=== PATIENT | male | born 1970 | race Caucasian/White ===

== ENCOUNTER 2018-12-22 13:35 | Inpatient (IN) | payer MEDICAID | END 2018-12-24 12:00 | disposition home or self-care (01) | LOC: ED 13:35 → MU 15:40 → ED 13:35 → MU 15:40 → ED 13:35 → MU 12-24 12:00 → ED 13:35 → MU 12-24 12:00 → ED 13:35 → MU 15:40 | DX: A41.9 Sepsis, unspecified organism (principal); E44.1 Mild protein-calorie malnutrition; L03.114 Cellulitis of left upper limb; E11.9 Type 2 diabetes mellitus without complications; E78.5 Hyperlipidemia, unspecified; F11.10 Opioid abuse, uncomplicated; F12.10 Cannabis abuse, uncomplicated; F15.10 Other stimulant abuse, uncomplicated; Z68.30 Body mass index [BMI] 30.0-30.9, adult; F17.210 Nicotine dependence, cigarettes, uncomplicated; Z79.84 Long term (current) use of oral hypoglycemic drugs ==

== ENCOUNTER 2019-05-10 01:13 | Emergency (ER) | payer MEDICAID ==
[~2019-05-10] VITALS: Ht 177.8 cm; Wt 103.4 kg
[~2019-05-10 01:13] MED LIST: BACTRIM1 TAB PO; KEFLEX500 M1 PO; METFORMIN HYDR500 M1 PO
[2019-05-10 01:16] VITALS: Ht 177.8 cm; Wt 103.4 kg
[2019-05-10 03:11] VITALS: BP 155/88
[2019-05-10] MEDS ORDERED: ZOLOFT50 MG PO (23:29)
== END 2019-05-10 03:11 | disposition left against medical advice (07) ==
LOC: ED 01:13
DX: L08.9 Local infection of the skin and subcutaneous tissue, unspecified (principal); L53.9 Erythematous condition, unspecified; E11.9 Type 2 diabetes mellitus without complications
CPT/HCPCS: 90715

== ENCOUNTER 2019-05-10 21:50 | Inpatient (IN) | payer MEDICAID ==
[~2019-05-10] VITALS: Ht 177.8 cm; Wt 102.5 kg
[2019-05-10 21:54] VITALS: Ht 177.8 cm; Wt 102.5 kg
[2019-05-10] MEDS ORDERED: ZOLOFT50 MG PO (23:29)
[2019-05-10 23:40] LABS: BASOPHIL % 0.3 % (0-2); PLATELET COUNT 193 x10^3mcL (130-400); RED CELL DISTRIBUTION WIDTH 13.2 % (11.5-14.5)
[2019-05-10 23:48] LABS: CALCIUM 8.6 mg/dL (8.5-10.1); CARBON DIOXIDE 31.5 mmol/L (21-32); CHLORIDE SERUM 100 mmol/L (98-107); CREATININE SERUM 0.9 mg/dL (0.7-1.3); GFR1 > 60 mL/min; GLUCOSE SERUM 355 mg/dL (74-106); POTASSIUM SERUM 3.8 mmol/L (3.5-5.1); SODIUM SERUM 139 mmol/L (136-145)
[2019-05-10 23:54] LABS: ALKALINE PHOSPHATASE 81 U/L (46-116); ALT/SGPT 26 U/L (16-63); AST/SGOT 16 U/L (15-37); BILIRUBIN TOTAL 0.3 mg/dL (0.20-1.00); TOTAL PROTEIN, SERUM 7.5 g/dL (6.4-8.2)
[2019-05-10 23:56] LABS: ALBUMIN 2.8 g/dL (3.4-5.0)
[2019-05-11 02:55] VITALS: BP 139/89
[2019-05-11 03:01] LABS: MAGNESIUM 1.8 mg/dL (1.8-2.4); PHOSPHOROUS 4.2 mg/dL (2.5-4.9)
[2019-05-11 03:02] LABS: CHOLESTEROL/HDL RATIO 4.7
[2019-05-11 03:11] LABS: FREE T4 1.71 ng/dL (0.76-1.46); FREE THYROXINE INDEX 3.9 ug/dL (1.4-4.5); T4(THYROXINE) 11.2 ug/dL (4.7-13.3)
[2019-05-11 05:42] VITALS: BP 153/95
[2019-05-11 05:53] LABS: microscopic required? NO
[2019-05-11 05:56] LABS: UA SPECIFIC GRAVITY >=1.030 (1.005-1.035); urine erythrocyte NEGATIVE (NEGATIVE)
[2019-05-11 06:11] LABS: AMPHETAMINE QUAL UR POSITIVE (See below)
[2019-05-11 06:42] LABS: CALCIUM 8.4 mg/dL (8.5-10.1); CARBON DIOXIDE 25.8 mmol/L (21-32); CHLORIDE SERUM 101 mmol/L (98-107); GFR1 > 60 mL/min; GLUCOSE SERUM 330 mg/dL (74-106); POTASSIUM SERUM 3.6 mmol/L (3.5-5.1); SODIUM SERUM 137 mmol/L (136-145)
[2019-05-11 06:54] LABS: BASOPHIL % 0.3 % (0-2); PLATELET COUNT 167 x10^3mcL (130-400); RED CELL DISTRIBUTION WIDTH 13.4 % (11.5-14.5)
[2019-05-11 09:23] VITALS: BP 161/103
[2019-05-11 18:56] VITALS: BP 141/74
[2019-05-11 20:53] VITALS: BP 144/81
[2019-05-11 23:16] LABS: T3 TOTAL 1.64 ng/mL
[2019-05-12 05:24] VITALS: BP 169/96
[2019-05-12 08:51] VITALS: BP 104/63
[2019-05-12 17:31] VITALS: BP 101/51
[2019-05-12 20:37] VITALS: BP 136/92
[2019-05-13 04:58] VITALS: BP 126/83
[2019-05-13 08:11] LABS: CALCIUM 9.1 mg/dL (8.5-10.1); CARBON DIOXIDE 22.6 mmol/L (21-32); CHLORIDE SERUM 97 mmol/L (98-107); CREATININE SERUM 0.7 mg/dL (0.7-1.3); GFR1 > 60 mL/min; GLUCOSE SERUM 163 mg/dL (74-106); POTASSIUM SERUM 5.4 mmol/L (3.5-5.1); SODIUM SERUM 129 mmol/L (136-145)
[2019-05-13 08:23] VITALS: BP 132/85
[2019-05-13 13:48] LABS: BASOPHIL % 0.4 % (0-2); PLATELET COUNT 287 x10^3mcL (130-400); RED CELL DISTRIBUTION WIDTH 13.7 % (11.5-14.5)
[2019-05-13 13:59] LABS: CALCIUM 9.3 mg/dL (8.5-10.1); CARBON DIOXIDE 29.2 mmol/L (21-32); CHLORIDE SERUM 96 mmol/L (98-107); CREATININE SERUM 0.9 mg/dL (0.7-1.3); GFR1 > 60 mL/min; GLUCOSE SERUM 202 mg/dL (74-106); PHOSPHOROUS 3.5 mg/dL (2.5-4.9); POTASSIUM SERUM 3.4 mmol/L (3.5-5.1); SODIUM SERUM 133 mmol/L (136-145)
[2019-05-13 17:14] VITALS: BP 113/77
[2019-05-13 21:21] VITALS: BP 146/96
[2019-05-14 06:04] VITALS: BP 153/100
[2019-05-14 09:04] LABS: BASOPHIL % 0.2 % (0-2); PLATELET COUNT 300 x10^3mcL (130-400); RED CELL DISTRIBUTION WIDTH 13.8 % (11.5-14.5)
[2019-05-14 09:14] LABS: CALCIUM 9.6 mg/dL (8.5-10.1); CARBON DIOXIDE 22.6 mmol/L (21-32); CHLORIDE SERUM 99 mmol/L (98-107); CREATININE SERUM 0.9 mg/dL (0.7-1.3); GFR1 > 60 mL/min; GLUCOSE SERUM 281 mg/dL (74-106); POTASSIUM SERUM 3.7 mmol/L (3.5-5.1); SODIUM SERUM 133 mmol/L (136-145)
[2019-05-14 09:25] VITALS: BP 151/93
[2019-05-14 17:35] VITALS: BP 150/90
[2019-05-14 21:23] VITALS: BP 145/94
[2019-05-15 06:04] VITALS: BP 14/88; BP 141/88
[2019-05-15 06:49] LABS: BASOPHIL % 0.2 % (0-2); PLATELET COUNT 303 x10^3mcL (130-400); RED CELL DISTRIBUTION WIDTH 13.6 % (11.5-14.5)
[2019-05-15 07:03] LABS: CALCIUM 9.1 mg/dL (8.5-10.1); CARBON DIOXIDE 24.5 mmol/L (21-32); CHLORIDE SERUM 99 mmol/L (98-107); CREATININE SERUM 0.8 mg/dL (0.7-1.3); GFR1 > 60 mL/min; GLUCOSE SERUM 154 mg/dL (74-106); SODIUM SERUM 136 mmol/L (136-145)
[2019-05-15 09:18] VITALS: BP 152/92
[2019-05-15] MEDS ORDERED: BACTRIM DS1 TAB PO (09:44)
[2019-05-15] MEDS ORDERED: [UNRECOGNIZED DRUG - OTHER] MC (09:44)
[2019-05-15] MEDS ORDERED: METFORMIN HCL500 MG PO (09:47)
[2019-05-15 13:39] VITALS: BP 152/92
== END 2019-05-15 16:07 | disposition home health service (06) | DRG 364 ==
LOC: ED 21:50 → MU 05-11 01:19
PROVIDERS: Emergency Medicine; Internal Medicine; ADMIT General Practice
PROC: 0J9F0ZZ Drainage of Left Upper Arm Subcutaneous Tissue and Fascia, Open Approach (ICD-10-PCS; principal; 2019-05-11)
DX: L02.414 Cutaneous abscess of left upper limb (principal); E43 Unspecified severe protein-calorie malnutrition; E87.2 Acidosis; E83.51 Hypocalcemia; F11.20 Opioid dependence, uncomplicated; F12.10 Cannabis abuse, uncomplicated; F15.10 Other stimulant abuse, uncomplicated; E11.9 Type 2 diabetes mellitus without complications; F32.9 Major depressive disorder, single episode, unspecified; Z79.84 Long term (current) use of oral hypoglycemic drugs; F17.210 Nicotine dependence, cigarettes, uncomplicated; Z68.32 Body mass index [BMI] 32.0-32.9, adult
CPT/HCPCS: 82962; 84439; G0378; J0696; J1815; J2001; J3490; J7030; Q0092